=== PATIENT | female | born 1990 | race Caucasian/White ===

== ENCOUNTER 2017-04-15 11:48 | Emergency (ER) | payer SELFPAY ==
[2017-04-15 11:55] VITALS: TEMP 99; O2SAT 99
--- NOTE | 2017-04-15 13:39 | EDPHY ---
HPI/HX/ROS/PE/MDM Time Seen by Provider: 04/15/17 12:55 Narrative: CHIEF COMPLAINT: Rash HPI: This patient is a 27 year old female complaining of a rash across her abdomen, arms, and legs. Thursday night, she had a cough and body aches, and noted a mild rash on her forearms. She began taking OTC cold medication and slept most of the day Thursday. That evening, her rash was more severe and spreading. She read that rash was a possible side effect of her cold medication and discontinued it. Initially, the affected areas were itchy, but now her skin has a "burning "sensation and feels swollen and painful. It has worsened since this morning, and spreads over her abdomen and legs. She endorses continued cough, headache, and pain at occiput and down her spine. She denies any known allergies. No recent changes in detergent, or soaps. She is not taking any medications or supplements. She has had rashes from poison beba and poison sumac before, but has never had similar symptoms otherwise and has not been outside lately. She denies chills, fever, vomiting, or other associated symptoms. No recent travel.. No sun exposure. No new detergents or lotions. No new animal contacts. No new clothes. 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 REVIEW OF SYSTEMS: Aside from elements discussed in the HPI, a comprehensive 10-point review of systems was reviewed and is negative. PMH: Denies. SOCIAL HISTORY: Works in [employer]. Friend at bedside. Lives in [place]. PHYSICAL EXAM: General:Patient is alert, in no acute distress. ENT:Eyes are normal to inspection. ENT inspection normal. Neck: Normal inspection. Full range of motion. Respiratory:No respiratory distress. Breath sounds normal bilaterally. Cardiovascular: Regular rate and rhythm. Strong peripheral pulses. Normal cap refill. Abdomen:The abdomen is nontender to palpation. There are no peritoneal signs. There are normal bowel sounds. Back: Normal to inspection. No tenderness to palpation. Skin: Erythematous maculopapular rash primarily on arms and flanks. Does not involve palms or soles. Warm and dry. Extremities: Normal appearance. Full range of motion. Neuro: Oriented x3. Normal motor function. Normal sensory function. (Erasmo Newton) ED Course: 27 y/o female presents with four day history of worsening erythematous maculopapular rash primarily on her arms and flanks. 14:[address] Bass, infectious disease specialist. (Erasmo Newton) MDM: This patient presents with a severe rash, primarily affecting both forearms and flanks but largely sparing the rest of her body. She has a mild cough but no other infectious symptoms - she is afebrile and her WBC is normal. This does not appear consistent with urticaria. Extensive review of occupation, travel, allergen history is negative except for mixing a new kind of dough with her bilateral arms which occurred earlier in the day that her symptoms began. I suspect this is the likely culprit. I considered infectious etiology, but given severity of rash, one would expect some lab or vital sign abnormality to accompany her exam findings. Blood cultures were drawn as a precaution. I discussed case with Dr. Bass who agrees that empiric antibiotics are likely not indicated in this scenario. I discussed options and findings in detail with the patient who is in agreement with plan for initial treatment with steroids and return to the ED tomorrow morning if symptoms do not improve. ( Erasmo Newton) - Data Points Laboratory Results: Laboratory Results 04/15/17 13:50 04/15/17 13:50 Medications Given: Discontinued Medications Methylprednisolone Sodium Succinate (Solu-Medrol) 125 mg IVP EDNOW ONE Stop: 04/15/17 15:04 Last Admin: 04/15/17 15:52 Dose: 125 mg General Time Seen by Provider: 04/15/17 13:25 Initial Vital Signs: Initial Vital Signs Temperature (C) 37.2 C 04/15/17 11:51 Heart Rate 99 04/15/17 11:51 Respiratory Rate 20 04/15/17 11:51 Blood Pressure 112/73 04/15/17 11:51 O2 Sat (%) 99 04/15/17 11:51 O2 Delivery Mode Room Air Allergies/Adverse Reactions: No Known Allergies Allergy (Unverified 04/15/17 11:50) Home Medications: Medication Instructions Recorded Benadryl 04/15/17 Cortisone 04/15/17 predniSONE 60 mg PO DAILY #9 tab 04/15/17 Departure - Departure Disposition: Home, Routine, Self-Care Clinical Impression: Dermatitis Condition: Good Instructions: Dermatitis (ED) Additional Instructions: 1. Follow up with a outside machinist helper for further evaluation. 2. Return to the emergency department tomorrow if your symptoms do not begin to resolve. Return immediately for any worsening of condition. Referrals: NONE *PRIMARY CARE P,. [Primary Care Provider] - As per Instructions Prescriptions: predniSONE 60 mg PO DAILY #9 tab Report Scribed for: Erasmo Newton Report Scribed by: Safia Costello Date of Report: 04/15/17 Time of Report: 13:39 Physician Review and Approval Statement: Portions of this note were transcribed by an ED scribe. I personally performed the history, physical exam, and medical decision making; and confirm the accuracy of the information in the transcribed note.
[2017-04-15 13:58] LABS: PLATELET COUNT 169 10^3/uL (150-400)
[2017-04-15] MEDS ORDERED: methylPREDNISolone SOD SUCC 125 MG/2 ML VIAL IVP ONE (15:03)
[2017-04-15 16:09] VITALS: BP 118/76; PULSE 84; RESP 16
== END 2017-04-15 16:09 | disposition home or self-care (01) ==
DX: L30.9 Dermatitis, unspecified (principal)
CPT/HCPCS: 96374; J2930